=== PATIENT | male | born 1995 | race Two or more races ===

== ENCOUNTER 2022-06-29 16:37 | Emergency (ER) | payer OTHER ==
[~2022-06-29] VITALS: Ht 170.2 cm; Wt 81.7 kg
== END 2022-06-29 19:07 | disposition home or self-care (01) ==
LOC: ER 16:37
DX: S61.012A Laceration without foreign body of left thumb without damage to nail, initial encounter (principal); W26.0XXA Contact with knife, initial encounter; Z23 Encounter for immunization
CPT/HCPCS: 73140; 90714; A9270